=== PATIENT | female | born 1950 | race Caucasian/White ===

== ENCOUNTER 2016-05-18 23:00 | Emergency (ER) | payer MEDICARE ==
[2016-05-18 23:29] VITALS: BP 161/86
--- NOTE | 2016-05-18 23:30 | ER Document Report ---
ED Medical Screen (RME) - General Chief Complaint: Knee Pain Stated Complaint: FALL/KNEE INJURY Time seen by provider: 23:24 Mode of Arrival: Ambulatory Information source: Patient Notes: 65-year-old female presents to ED for bilateral knee pain. She states she fell 3 days ago has scabs to both knees. Patient states she has chronic pain and had been taken Percocet fives for a while and they could work and said now she is on Percocet tens. TRAVEL OUTSIDE OF THE [place] IN LAST 30 DAYS: No - HPI Onset: Other - Patient fell 3 days ago has scabs to both knees Onset/Duration: Intermittent Quality of pain: Achy Severity: Moderate Pain Level: 4 - Soreness Associated Symptoms: Other - Pain bilateral knees where she has fallen and got scabs on both knees able to walk Exacerbated by: Movement, Walking Relieved by: Denies Similar symptoms previously: Yes Recently seen / treated by doctor: No - Related Data Smoking: Cigarettes, Greater than 1 pack/day - 1-1-1/2 packs per day Frequency of alcohol use: None Drug Abuse: None Allergies/Adverse Reactions: gabapentin [Gabapentin] Adverse Reaction (Verified 03/15/16 14:04) " took my breath away" Past Medical History - General Information source: Patient - Social History Cigarette use (# per day): Yes Chew tobacco use (# tins/day): No Frequency of alcohol use: None Drug Abuse: None Lives with: Family Family history: Arthritis, CAD, CVA, DM, Hyperlipidemia, Hypertension, Malignancy, Thyroid Disfunction - Past Medical History Cardiac Medical History: Reports: Hx Hypercholesterolemia, Hx Hypertension Pulmonary Medical History: Reports: Hx Bronchitis, Hx Pneumonia EENT Medical History: Reports: None Neurological Medical History: Reports: None Endocrine Medical History: Reports: Hx Diabetes Mellitus Type 2 Renal/ Medical History: Reports: Hx Ovarian Cysts Malignancy Medical History: Reports: Hx Skin Cancer GI Medical History: Reports: Hx Gastritis, Hx Gastroesophageal Reflux Disease Musculoskeltal Medical History: Reports Hx Arthritis - rheumatoid, Reports Hx Musculoskeletal Deformity, Reports Hx Musculoskeletal Trauma Skin Medical History: Reports None Psychiatric Medical History: Reports: Hx Depression Traumatic Medical History: Reports: Hx Fractures - Arm Infectious Medical History: Reports: None Past Surgical History: Reports: Hx Abdominal Surgery, Hx Cholecystectomy - 3 months old, Hx Genitourinary Surgery - Bladder sling, Hx Hysterectomy - partial , Other - Skin cancer removed - Immunizations Hx Diphtheria, Pertussis, Tetanus Vaccination: No Review of Systems - Review of Systems Constitutional: No symptoms reported EENT: No symptoms reported Cardiovascular: No symptoms reported Respiratory: No symptoms reported Gastrointestinal: No symptoms reported Genitourinary: No symptoms reported Female Genitourinary: No symptoms reported Musculoskeletal: No symptoms reported Skin: Other - Scabs to both knees Hematologic/Lymphatic: No symptoms reported Neurological/Psychological: No symptoms reported Physical Exam - Vital signs Vitals: Temp Pulse Resp BP Pulse Ox 97.6 F 89 16 158/80 H 98 05/18/16 23:07 05/18/16 23:07 05/18/16 23:07 05/18/16 23:07 05/18/16 23:07 Interpretation: Normal - General General appearance: Appears well, Alert - HEENT Head: Normocephalic, Atraumatic Eyes: Normal Pupils: PERRL - Respiratory Respiratory status: No respiratory distress Chest status: Nontender Breath sounds: Normal Chest palpation: Normal - Cardiovascular Rhythm: Regular Heart sounds: Normal auscultation Murmur: No - Abdominal Inspection: Normal Distension: No distension Bowel sounds: Normal Tenderness: Nontender Organomegaly: No organomegaly - Back Back: Normal, Nontender - Extremities General upper extremity: Normal inspection, Nontender, Normal color, Normal ROM , Normal temperature General lower extremity: Normal color, Normal ROM, Normal temperature, Normal weight bearing. No: Zuleyma's sign Knee: Tender, Pain with ROM, Patellar tendon intact, Other - Scabs to both knees. No: Deformity, Dislocation, Drawer's test instability, Ecchymosis, Joint effusion, Laceration, Laxity with valgus stress, Laxity with varus stress , Popliteal fossa tender, Tender joint line - Neurological Neuro grossly intact: Yes Cognition: Normal Orientation: AAOx4 [place] Coma Scale Eye Opening: Spontaneous [place] Coma Scale Verbal: Oriented [place] Coma Scale Motor: Obeys Commands [place] Coma Scale Total: 15 Speech: Normal Motor strength normal: LUE, RUE, LLE, RLE Sensory: Normal - Psychological Associated symptoms: Normal affect, Normal mood - Skin Skin Temperature: Warm Skin Moisture: Dry Skin Color: Normal Location of irregularity: Extremities - Abrasions with scabs to both knees bacitracin applied Course - Re-evaluation Re-evalutation: 05/19/16 07:11 Patient walking freely with scabs noted to both knees. Both knees cleaned dried and bacitracin applied with dressing. Patient given enough bacitracin and dressing change dressing again instructed on how to care for these areas. - Vital Signs Vital signs: Temp Pulse Resp BP Pulse Ox 97.6 F 89 16 161/86 H 98 05/18/16 23:07 05/18/16 23:07 05/18/16 23:07 05/18/16 23:27 05/18/16 23:07 Doctor's Discharge - Discharge Clinical Impression: Abrasion of knee, bilateral Fall Qualifiers: Encounter type: initial encounter Qualified Code(s): W19.XXXA - Unspecified fall, initial encounter Knee pain, bilateral Qualifiers: Chronicity: acute Qualified Code(s): M25.561 - Pain in right knee Disposition: HOME, SELF-CARE Additional Instructions: Abrasions An abrasion is a scraping injury of the skin. Some scarring may result. The seriousness of an abrasion is not always obvious at first. Hidden tissue damage may be present and infection may occur despite proper care. Complete healing may take from ten days to as long as a month. The healing time depends on the depth of the abrasion, and on the amount of crushing of underlying tissues from the injury. Keep the wound and dressing clean. Do not shower or bathe the area until okayed by the doctor. If the dressing gets wet, remove it and blot the wound dry, then reapply a clean dressing. Dressings should be changed every day. Sunscreen should be used for six months after the skin is healed. If any signs of infection occur (swelling, redness, increasing tenderness, red streaks, profuse purulent drainage from the abrasion, tender lumps in the armpit or groin above the abrasion, or fever), see the doctor immediately. SOAP CLEANSING: Gently wash the wound daily using a mild soap (like Ivory, Phisoderm, Neutrogena). Use warm water, rubbing gently until all debris, ooze, and crusting have been washed from the wound. Allow to dry briefly (about 10 minutes) after cleaning. Repeat this cleansing at least three times a day for the first two days and then once or twice a day. ANTIBIOTIC OINTMENT PROTECTION: Your wounds are such that dressing them is not practical or optional. After cleansing, you should apply a thin coating of antibiotic ointment ( Bacitracin, not Neosporin) to the wounds at least three times daily. This lessens infection risk, and may decrease the amount of scarring. Use a q-tip or dull butter knife, not your finger, to apply this ointment. Any debris or ooze which builds up in the ointment should be gently rubbed off with a sterile gauze pad. Harder crusting may need to be gently scrubbed off with a clean wash cloth with soap and warm water, perhaps applying a warm, wet wash cloth to the wound for ten minutes first. Development of redness, severe itching, or blistering may mean allergy to the ointment. See the doctor. FOLLOW-UP CARE: If you have been referred to a physician for follow-up care, call the physician s office for an appointment as you were instructed or within the next two days. If you experience worsening or a significant change in your symptoms, notify the physician immediately or return to the Emergency Department at any time for re-evaluation. Prescriptions: Ibuprofen 600 mg PO Q8HP PRN #20 tablet PRN Reason: Forms: Elevated Blood Pressure, Smoking Cessation Education
[2016-05-18] MEDS ORDERED: IBUPROFEN 800 MG TABLET ONE (23:31)
[2016-05-18] MEDS ORDERED: IBUPROFEN 800 MG TABLET PO ONE (23:40)
== END 2016-05-18 23:45 | disposition home or self-care (01) ==
LOC: ER 23:00
DX: S80.212A Abrasion, left knee, initial encounter (principal); S80.211A Abrasion, right knee, initial encounter; M25.562 Pain in left knee; M25.561 Pain in right knee; Z79.899 Other long term (current) drug therapy; F17.210 Nicotine dependence, cigarettes, uncomplicated; W19.XXXA Unspecified fall, initial encounter
CPT/HCPCS: 99283

== ENCOUNTER 2016-05-26 16:59 | Emergency (ER) | payer MEDICARE ==
--- NOTE | 2016-05-26 17:21 | ER Document Report ---
ED Medical Screen (RME) - General Stated Complaint: SPIDER BITE Time seen by provider: 17:16 Mode of Arrival: Ambulatory Information source: Patient Notes: 65-year-old female woke up with a possible spider bite on her distal right volar ulnar wrist. It was red and swollen and her son drained it. 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 Feels a little better this afternoon. No hx MRSA. TRAVEL OUTSIDE OF THE [place] IN LAST 30 DAYS: No - Related Data Allergies/Adverse Reactions: gabapentin [Gabapentin] Adverse Reaction (Verified 03/15/16 14:04) " took my breath away" Past Medical History - Social History Family history: Arthritis, CAD, CVA, DM, Hyperlipidemia, Hypertension, Malignancy, Thyroid Disfunction - Past Medical History Cardiac Medical History: Reports: Hx Hypercholesterolemia, Hx Hypertension Pulmonary Medical History: Reports: Hx Bronchitis, Hx Pneumonia Endocrine Medical History: Reports: Hx Diabetes Mellitus Type 1, Hx Diabetes Mellitus Type 2 Renal/ Medical History: Reports: Hx Ovarian Cysts. 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, Reports Hx Musculoskeletal Deformity, Reports Hx Musculoskeletal Trauma Psychiatric Medical History: Reports: Hx Depression Traumatic Medical History: Reports: Hx Fractures - Arm Past Surgical History: Reports: Hx Abdominal Surgery, Hx Cholecystectomy - 3 months old, Hx Genitourinary Surgery - Bladder sling, Hx Hysterectomy - partial , Other - Skin cancer removed - Immunizations Hx Diphtheria, Pertussis, Tetanus Vaccination: No
--- NOTE | 2016-05-26 17:54 | ER Document Report ---
ED Skin Rash/Insect Bite/Abscs - General Mode of Arrival: Ambulatory Information source: Patient TRAVEL OUTSIDE OF THE [place] IN LAST 30 DAYS: No - HPI Patient complains to provider of: Tender/swollen area - right wrist, Insect bite - spider <SHIRLEY CALDERON - Last Filed: 05/26/16 18:54> <BRENDA STAHL - Last Filed: 05/26/16 19:17> - General Chief Complaint: Abscess Stated Complaint: SPIDER BITE Notes: 65 year old female presents to the ED complaining of a spider bite and an abscess to the right medial wrist. Patient states that she has used peroxide to wash the wound and has soaked it in warm water for minor relief. Patient's son helped to drain the abscess the best he could by pressing around the bite. Patient's daughter states that she recently fell and suffered a concussion so she is still having some minor difficulties secondary to the fall. (SHIRLEY CALDERON ) - Related Data Allergies/Adverse Reactions: gabapentin [Gabapentin] Adverse Reaction (Verified 05/26/16 18:35) " took my breath away" Past Medical History - General Information source: Patient - Social History Smoking Status: Current Every Day Smoker Family History: Reviewed & Not Pertinent - Past Medical History Cardiac Medical History: Reports: Hx Hypercholesterolemia, Hx Hypertension Pulmonary Medical History: Reports: Hx Bronchitis, Hx Pneumonia Endocrine Medical History: Reports: Hx Diabetes Mellitus Type 1, Hx Diabetes Mellitus Type 2 Renal/ Medical History: Reports: Hx Ovarian Cysts. 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, Reports Hx Musculoskeletal Deformity, Reports Hx Musculoskeletal Trauma Psychiatric Medical History: Reports: Hx Depression Traumatic Medical History: Reports: Hx Fractures - Arm Past Surgical History: Reports: Hx Abdominal Surgery, Hx Cholecystectomy - 3 months old, Hx Genitourinary Surgery - Bladder sling, Hx Hysterectomy - partial , Other - Skin cancer removed - Immunizations Hx Diphtheria, Pertussis, Tetanus Vaccination: No <SHIRLEY CALDERON - Last Filed: 05/26/16 18:54> Review of Systems - Review of Systems Constitutional: No symptoms reported EENT: No symptoms reported Cardiovascular: No symptoms reported Respiratory: No symptoms reported Gastrointestinal: No symptoms reported Genitourinary: No symptoms reported Female Genitourinary: No symptoms reported Musculoskeletal: No symptoms reported Skin: See HPI, Other - abscess to the right medial wrist secondary to a spider bite Hematologic/Lymphatic: No symptoms reported Neurological/Psychological: No symptoms reported -: Yes All other systems reviewed and negative <SHIRLEY CALDERON - Last Filed: 05/26/16 18:54> Physical Exam - General General appearance: Alert In distress: None - HEENT Head: Normocephalic, Atraumatic Eyes: Normal Extraocular movements intact: Yes Pupils: PERRL - Respiratory Respiratory status: No respiratory distress - Cardiovascular Rhythm: Regular Heart sounds: Normal auscultation - Abdominal Inspection: Normal Distension: No distension Bowel sounds: Normal Tenderness: Nontender - Back Back: Normal - Extremities General upper extremity: Normal ROM. No: Normal inspection - see skin exam below General lower extremity: Normal inspection, Normal ROM - Neurological Neuro grossly intact: Yes - Psychological Associated symptoms: Normal affect, Normal mood - Skin Skin Temperature: Warm Skin Moisture: Dry Skin Color: Normal Skin irregularity: Abscess - Right volar ulnar wrist has a 1cm round, erythematous, and raised abscess with a central hole with presence of some drainage. Abscess is firm, but not fluctuant. Location of irregularity: Other - right volar ulnar wrist Character of irregularity: Erythematous <SHIRLEY CALDERON - Last Filed: 05/26/16 18:54> <BRENDA STAHL - Last Filed: 05/26/16 19:17> - Vital signs Vitals: Temp Pulse Resp BP Pulse Ox 97.8 F 97 18 140/66 H 96 05/26/16 17:14 05/26/16 17:14 05/26/16 17:14 05/26/16 17:14 05/26/16 17:14 (SHIRLEY CALDERON) (BRENDA STAHL) Procedures - Incision and Drainage Right Volar Wrist Time completed: 19:10 Type: Simple Anesthetic type: 1% Lidocaine mL's of anesthetic: 2 Blade size: 11 I&D procedure: Chlorprep applied, Iodoform packing placed Incision Method: Incision made by scalpel Amount/type of drainage: SMALL AMOUNT OF PUS <BRENDA STAHL - Last Filed: 05/26/16 19:17> Discharge <SHIRLEY CALDERON - Last Filed: 05/26/16 18:54> <BRENDA STAHL - Last Filed: 05/26/16 19:17> - Discharge Clinical Impression: Abscess Condition: Stable Disposition: HOME, SELF-CARE Additional Instructions: Abscess: You have an abscess (boil). This a pus-forming infection, usually due to staph. Some boils may be left to drain on their own, but most require lancing. From the time the tender lump first appears, it may be three or four days before the abscess is ready to chery. Local heat and rest help at this stage of treatment. An antibiotic may prevent spread of the infection. Once the abscess is opened, packing may be placed into it. This is done so pus is not sealed inside by premature closure of the cavity. The packing will be removed at your follow-up visit or you may be advised to remove it yourself at home. Sometimes this packing must be replaced a few times during healing. The wound will heal with surprisingly little scar. Depending on the size and location of an abscess, healing can take one to four weeks. You may shower and wash the area around the incision site two or three times a day. Antibiotics may be prescribed, but are usually not necessary after an abscess has been drained. If you develop fever, chilling, worsening pain, or increasing swelling in the area, call the doctor or return immediately. ELEVATE THE HAND. KEEP THE DRESSING CLEAN AND DRY. REMOVE THE GAUZE PACKING SATURDAY. TAKER THE MEDICATIONS PRESCRIBED. TAKE TYLENOL AND MOTRIN FOR PAIN IF NEEDED. RETURN TO THE EMERGENCY ROOM IF ANY NEW OR WORSENING SYMPTOMS. Prescriptions: Cephalexin Monohydrate [Keflex 500 mg Capsule] 500 mg PO QID #20 capsule Sulfamethoxazole/Trimethoprim [Bactrim Ds Tablet] 2 tab PO BID #20 tablet Scribe Attestation: 05/26/16 19:14 I personally performed the services described in the documentation, reviewed and edited the documentation which was dictated to the scribe in my presence, and it accurately records my words and actions. (BRENDA STAHL) Scribe Documentation - Scribe Written by Octavio:: Octavio Chan, 05/26/2016 [id number] acting as scribe for :: Favio <SHIRLEY CALDERON - Last Filed: 05/26/16 18:54>
[2016-05-26] MEDS ORDERED: LIDOCAINE 1% INJ-PF (10 MG/ML) 30 ML SDV INJ ONE (18:00)
[2016-05-26] MEDS ORDERED: CEPHALEXIN 500 MG CAPSULE PO ONE (19:10)
[2016-05-26] MEDS ORDERED: SULFAMETHOXAZOLE/TRIMETHOPRIM 800-160 MG TABLET PO ONE (19:10)
[2016-05-26 19:54] VITALS: BP 136/82
== END 2016-05-26 19:53 | disposition home or self-care (01) ==
LOC: ER 16:59
PROC: 0H9DXZZ Drainage of Right Lower Arm Skin, External Approach (ICD-10-PCS; principal; 2016-05-26)
DX: L02.413 Cutaneous abscess of right upper limb (principal); F17.200 Nicotine dependence, unspecified, uncomplicated; E78.00 Pure hypercholesterolemia, unspecified; I10 Essential (primary) hypertension; E11.9 Type 2 diabetes mellitus without complications; Z85.828 Personal history of other malignant neoplasm of skin; Z90.49 Acquired absence of other specified parts of digestive tract; Z90.710 Acquired absence of both cervix and uterus
CPT/HCPCS: 99283; 10060; A9270 ×2

== ENCOUNTER → 2016-09-13 | Outpatient (CLI) | payer MEDICARE ==
--- NOTE | 2016-09-13 14:42 | WOMENS IMAGING REPORT ---
EXAM DESCRIPTION: U/S PELVIS NON-OB COMPLETED DATE/TIME: 09/13/2016 1:22 pm REASON FOR STUDY: D27.9, U/S PELVIS D27.9 BENIGN NEOPLASM OF UNSPECIFIED OVARY COMPARISON: CT abdomen pelvis 02/05/2014 Pelvic ultrasound 02/05/2014 TECHNIQUE: Dynamic and static grayscale images acquired of the pelvis via transabdominal approach an d recorded on PACS. Additional selected color Doppler and spectral images recorded. LIMITATIONS: Large body habitus. Empty bladder. FINDINGS: UTERUS: Contour normal. No mass. Uterus is 7.6 x 4.1 x 3.4 cm in size ENDOMETRIAL STRIPE: No focal or generalized thickening. No masses. Endometrial stripe 3 to 4 mm in t hickness CERVIX: Not well seen RIGHT OVARY: Not visualized RIGHT OVARY DOPPLER: Not performed LEFT OVARY: Not visualized LEFT OVARY DOPPLER: Not performed FREE FLUID: None noted. OTHER: No other significant finding. IMPRESSION: Limited study. Ovaries not visualized. TECHNICAL DOCUMENTATION: JOB ID: [id number] [employer]- All Rights Reserved
== END ==
LOC: WI 10:35
PROVIDERS: ATTEND Internal Medicine
DX: D27.9 Benign neoplasm of unspecified ovary (principal)
CPT/HCPCS: 76856

== ENCOUNTER 2016-09-15 03:39 | Emergency (ER) | payer MEDICARE ==
[2016-09-15] MEDS ORDERED: OXYCODONE-ACETAMINOPHEN 5-325 MG TABLET PO ONE (05:48)
--- NOTE | 2016-09-15 06:27 | RADIOLOGY REPORT (SQ) ---
EXAM DESCRIPTION: CT HEAD WITHOUT COMPLETED DATE/TIME: 09/15/2016 6:10 am REASON FOR STUDY: fall COMPARISON: CT head 03/15/2016 TECHNIQUE: Axial images acquired through the brain without intravenous contrast. Images reviewed wi th bone, brain and subdural windows. Images stored on PACS. All CT scanners at this facility use dose modulation, iterative reconstruction, and/or weight based d osing when appropriate to reduce radiation dose to as low as reasonably achievable (ALARA). [facility]: Dose Right [facility]: CareDose [facility]: Dose Right [facility]: Teradose 4D [facility]: Loccie RADIATION DOSE: 64.61 mGy. LIMITATIONS: There is motion artifact. There is streak artifact from the patient's dental amalgam. FINDINGS: VENTRICLES: Mildly prominent. CEREBRUM: No mass effect. No hemorrhage. No midline shift. Areas of low density in the white matte r most likely due to chronic micro-vascular ischemic change. No evidence for acute territorial infar ction. CEREBELLUM: No hemorrhage. No alteration of density. No evidence for acute infarction. EXTRAAXIAL SPACES: Mild age-related involutional change. No fluid collections. ORBITS AND GLOBE: Symmetrical contour of the globes. CALVARIUM: No depressed fracture. PARANASAL SINUSES: No air-fluid level. SOFT TISSUES: No hematoma. IMPRESSION: No acute intracranial hemorrhage or depressed calvarial fracture. Mild chronic changes of atrophy and microvascular ischemia. TECHNICAL DOCUMENTATION: JOB ID: [id number] [facility] Quality ID # [id number]: Final reports with documentation of one or more dose reduction techniques (e.g., Au tomated exposure control, adjustment of the mA and/or kV according to patient size, use of iterative reconstruction technique) 2010 [employer]- All Rights Reserved
--- NOTE | 2016-09-15 06:42 | RADIOLOGY REPORT (SQ) ---
EXAM DESCRIPTION: CT CERVICAL SPINE WITHOUT COMPLETED DATE/TIME: 09/15/2016 6:11 am REASON FOR STUDY: fall COMPARISON: None. TECHNIQUE: Axial images acquired through the cervical spine without intravenous contrast. Images re viewed with lung, soft tissue and bone windows. Reconstructed coronal and sagittal MPR images review ed. Images stored on PACS. All CT scanners at this facility use dose modulation, iterative reconstruction, and/or weight based d osing when appropriate to reduce radiation dose to as low as reasonably achievable (ALARA). [facility]: Dose Right [facility]: CareDose [facility]: Dose Right [facility]: Teradose 4D [facility]: General Blood RADIATION DOSE: 19.55 mGy. LIMITATIONS: None. FINDINGS: ALIGNMENT: Anatomic. MINERALIZATION: Normal. VERTEBRAL BODIES: No fractures or dislocation. DISCS: No significant disc disease. FACETS, LATERAL MASSES, POSTERIOR ELEMENTS: No fractures. No dislocation. HARDWARE: None in the spine. VISUALIZED RIBS: No fractures. LUNG APICES AND SOFT TISSUES: No acute findings. IMPRESSION: No acute fracture in the cervical spine. TECHNICAL DOCUMENTATION: JOB ID: [id number] [facility] Quality ID # 436: Final reports with documentation of one or more dose reduction techniques (e.g., Au tomated exposure control, adjustment of the mA and/or kV according to patient size, use of iterative reconstruction technique) 2010 [employer]- All Rights Reserved
--- NOTE | 2016-09-15 06:43 | RADIOLOGY REPORT (SQ) ---
EXAM DESCRIPTION: KNEE LEFT 2 VIEWS COMPLETED DATE/TIME: 09/15/2016 6:24 am REASON FOR STUDY: fall COMPARISON: None. NUMBER OF VIEWS: Two views. TECHNIQUE: AP and lateral radiographic images acquired of the left knee. LIMITATIONS: None. FINDINGS: MINERALIZATION: Normal. BONES: No acute fracture or dislocation. JOINT: No effusion. SOFT TISSUES: No soft tissue swelling. No radio-opaque foreign body. IMPRESSION: No radiographic evidence of acute injury. TECHNICAL DOCUMENTATION: JOB ID: [id number] [place]-[id number] 2010 [employer]- All Rights Reserved
--- NOTE | 2016-09-15 06:45 | RADIOLOGY REPORT (SQ) ---
EXAM DESCRIPTION: TIBIA FIBULA LEFT COMPLETED DATE/TIME: 09/15/2016 6:24 am REASON FOR STUDY: fall COMPARISON: None. NUMBER OF VIEWS: Two views. TECHNIQUE: Two radiographic images acquired of the left tibia and fibula to include the knee and ank le in at least one projection. LIMITATIONS: None. FINDINGS: MINERALIZATION: Normal. BONES: No acute fracture or dislocation. SOFT TISSUES: No obvious swelling or radiopaque foreign body. IMPRESSION: No radiographic evidence of acute injury. TECHNICAL DOCUMENTATION: JOB ID: [id number] [place]-[id number] 2010 [employer]- All Rights Reserved
--- NOTE | 2016-09-15 06:56 | ER Document Report ---
HPI - HPI Patient complains to provider of: fall Pain Level: 5 Context: This 66-year-old female since emergency department complaining of fall earlier this evening. 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 Patient denies any LOC but admits to nausea with headache and confusion lasting less than a minute. She does have a gash over the left forehead. Otherwise denies headache currently. She admits to stiffness all of her body but pain over her left knee and her left wasserman. Past medical history significant for high blood pressure and diabetes. Primary care is Dr. Mikhail Stanford - CARDIOVASCULAR Cardiovascular: DENIES: Chest pain - REPRODUCTIVE Reproductive: DENIES: : - DERM Skin Color: Normal - NURSING COMMENTS Comment: pt reports that she tripped and fell while chasing her cat this morning and tripped and fell. pt las abrasions to arms and knees and small cut above her left eye. pt reports neck pain. denies LOC. Past Medical History - Social History Smoking Status: Unknown if Ever Smoked Family History: Reviewed & Not Pertinent Patient has suicidal ideation: No Patient has homicidal ideation: No - Past Medical History Cardiac Medical History: Reports: Hx Hypercholesterolemia, Hx Hypertension Pulmonary Medical History: Reports: Hx Bronchitis, Hx Pneumonia Endocrine Medical History: Reports: Hx Diabetes Mellitus Type 1, Hx Diabetes Mellitus Type 2 Renal/ Medical History: Reports: Hx Ovarian Cysts. 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, Reports Hx Musculoskeletal Deformity, Reports Hx Musculoskeletal Trauma Psychiatric Medical History: Reports: Hx Depression Traumatic Medical History: Reports: Hx Fractures - Arm Past Surgical History: Reports: Hx Abdominal Surgery, Hx Cholecystectomy - 3 months old, Hx Genitourinary Surgery - Bladder sling, Hx Hysterectomy, Other - Skin cancer removed - Immunizations Hx Diphtheria, Pertussis, Tetanus Vaccination: No Vertical Provider Document - CONSTITUTIONAL Agree With Documented VS: Yes Exam Limitations: No Limitations General Appearance: WD/WN, No Apparent Distress - INFECTION CONTROL TRAVEL OUTSIDE OF THE [place] IN LAST 30 DAYS: No - HEENT HEENT: Normocephalic, PERRLA Notes: 1cm superficial laceration above the left eyebrow - NECK Neck: Normal Inspection, Other - Initially in a c-collar. After cleared, full range of motion no spinous process tenderness - RESPIRATORY Respiratory: Breath Sounds Normal, No Respiratory Distress, Chest Non-Tender O2 Sat by Pulse Oximetry: 97 - CARDIOVASCULAR Cardiovascular: Regular Rate, Regular Rhythm, No Murmur Pulses: Normal: Radial, Dorsalis pedis - BACK Back: Normal Inspection Notes: No evidence of spinous process tenderness, deformity, step-off, ecchymosis. No paraspinous muscle tenderness. Patient able to ambulate to the bathroom with normal gait - MUSCULOSKELETAL/EXTREMETIES Musculoskeletal/Extremeties: MAEW, FROM, Tender - distal knee, anterior tib - NEURO Level of Consciousness: Awake, Alert, Appropriate Motor/Sensory: No Motor Deficit, No Sensory Deficit - DERM Integumentary: Laceration - left knee, left tibia superficial not past dermis Course - Re-evaluation Re-evalutation: 09/15/16 07:56 Patient is a 66-year-old female who is hemodynamic stable, no acute distress afebrile. Head CT and C-spine PCR negative for any bleed or fracture. Tib-fib and knee x-rays do not show any evidence of dislocation or fracture. Patient stable for discharge home - Vital Signs Vital signs: Temp Pulse Resp BP Pulse Ox 97.8 F 90 18 150/74 H 97 09/15/16 03:45 09/15/16 03:45 09/15/16 03:45 09/15/16 03:45 09/15/16 03:45 - Diagnostic Test Radiology reviewed: Image reviewed, Reports reviewed Procedures - Laceration/Wound Repair Face Wound length (cm): 1 Wound's Depth, Shape: Superficial Laceration pre-procedure: Betadine prep applied Wound Repaired With: Dermabond Discharge - Discharge Clinical Impression: Fall, Laceration Condition: Good Disposition: HOME, SELF-CARE Additional Instructions: MOTOR VEHICLE ACCIDENT: You may develop some soreness and stiffness over the next two days. Mild neck and back strain is common in auto accidents, and may not be painful until the muscle becomes inflamed. But if nothing is painful now, there is no fracture , and x-rays are not needed. If you develop pain over the next couple of days, treat each tender area. Apply cold packs directly to the painful spot. Rest. Antiinflammatory pain medication, such as ibuprofen, can decrease soreness and inflammation. Most of the time, these late-developing pains go away within a few days. Most patients are back at work or school within a week. The area might be little irritable for two or three weeks. You should call the doctor, or go to the hospital, if you develop severe neck, chest, or abdominal pain, repeated vomiting, severe lightheadedness or weakness, trouble breathing, numbness or weakness in any extremity, problems with your bladder or bowel, or pain radiating down an arm or leg. HEAD INJURY PRECAUTIONS: At this point, there is no evidence that your head injury is serious. Observation is necessary, however. Take only clear liquids for the first few hours, unless told otherwise by the doctor. If no pain medication was prescribed, you may take acetaminophen according to the directions on the bottle. Do not take any medication that may alter your level of alertness (unless you've discussed it with the doctor first) . Limit activity for the first 24 hours. Bed rest is best. During the first 24 hours, check to see approximately every two to three hours that the patient is easily arousable, responds normally, and can perform common tasks such as walking without difficulty. Contact your doctor or go to the hospital if any of the following things occur: Persistent vomiting, difficulty in arousing the patient, worsening or continued headache, or failure to improve as expected. Head injuries can cause symptoms that persist for a few days or even a few weeks. NECK INJURY (CERVICAL STRAIN): You have a neck strain. This is an injury to the muscles and ligaments in the neck. There is no evidence of a fracture of the neck bones. Also, no injury to the spinal cord or nerve roots was detected. Usually, stiffness and pain INCREASE for the first 24-48 hours after the injury. The pain will gradually resolve and the neck will become more mobile. Most patients are back at work or school within a few days. Typically, complete healing takes about two or three weeks. The usual initial treatment is rest and cold packs. A neck collar may be placed to keep the muscles of the neck at rest. Antiinflammatory and muscle relaxing medication are often used to reduce the spasm and irritation. You should call the doctor, or go to the hospital, if you develop numbness or weakness in any extremity, problems with your bladder or bowel, or pain radiating down the arms. MUSCLE STRAIN: You have strained a muscle -- torn the fibers within the muscle. This often occurs with strenuous exertion, or during an injury that suddenly stretches the muscle. The seriousness of a strain varies. Some strains heal within days, others cause problems for months. X-rays cannot show a muscle strain. X-rays are taken only if symptoms suggest that a fracture could be present. The usual treatment of a muscle strain is rest and ice packs. Sometimes, a sling, splint, or crutches may be necessary to rest the muscle. The muscle can be used again once pain subsides. Severe strains require a special exercise and stretching program to prevent permanent stiffness and disability. Your doctor will advise you if this will be necessary. Call the doctor immediately if pain or swelling becomes severe, or if numbness or discoloration develop. CONTUSION: Your injury has resulted in a contusion -- a crushing of the deep tissues. No injury to important structures was detected during the physician's exam. Contusions vary in the amount of pain they cause, and in the length of time required for healing. Typically, the area will become bruised, and will remain painful to touch for two or three weeks. However, most patients are back to working and playing within a few days. After the initial period of rest and cold-packs, your symptoms (together with the doctor's recommendations) will determine how rapidly you can get back to full activity. Usually this means "do what feels okay, but don't do things that hurt." If re-examination was recommended, it's important to follow up as instructed. Call the doctor or return any time if pain increases, if swelling becomes severe, if you develop numbness or weakness in an injured extremity, or if any other alarming symptoms occur. ABRASIONS: An abrasion is a scraping injury of the skin. Some scarring may result. The seriousness of an abrasion is not always obvious at first. Hidden tissue damage may be present and infection may occur despite proper care. Complete healing may take from ten days to as long as a month. The healing time depends on the depth of the abrasion, and on the amount of crushing of underlying tissues from the injury. Keep the wound and dressing clean. Do not shower or bathe the area until okayed by the doctor. If the dressing gets wet, remove it and blot the wound dry, then reapply a clean dressing. Dressings should be changed every day. Sunscreen should be used for six months after the skin is healed. If any signs of infection occur (swelling, redness, increasing tenderness, red streaks, profuse purulent drainage from the abrasion, tender lumps in the armpit or groin above the abrasion, or fever), see the doctor immediately. LOW BACK PAIN: Three out of every four people will have an episode of disabling back pain during their lifetime. Most commonly the pain is due to straining of the muscles and ligaments in the low back. Usual treatment includes: (1) Rest on a firm surface. Avoid lying on your stomach. (2) Ice pack the painful area. After a few days, gentle heat may be used intermittently to relax the area, or ice packs can be continued. (3) Medication may be needed -- muscle relaxers and antiinflammatory medicines are commonly used. (4) As the back improves, exercises are prescribed to strengthen the back and abdominal muscles. Your doctor will advise you on the proper care for your back at each stage in your recovery. You may be better in a few days -- or healing may take several weeks. If new symptoms of a "herniated disc" (radiation of pain, numbness, or tingling down the back of the leg or weakness in the leg) occur, you should be re-examined. Further testing may be necessary. USE OF TYLENOL (ACETAMINOPHEN): Acetaminophen may be taken for pain relief or fever control. It's much safer than aspirin, offering a wider range of "safe" dosages. It is safe during . Some brand names are Tylenol, Panadol, Datril, Anacin 3, Tempra, and Liquiprin. Acetaminophen can be repeated every four hours. The following are maximum recommended dosages: WEIGHT Dose Drops Elixir Chewable( 80mg) (LBS.) drprs=droppers tsp=teaspoon 6 40 mg 0.4 ml (1/2) 6-11 80 mg 0.8 ml (full) tsp 1 tab 12-16 120 mg 1 1/2 drprs 3/4 tsp 1 1/2 tabs 17-23 160 mg 2 drprs 1 tsp 2 tabs 24-30 240 mg 3 drprs 1 1/2 tsp 3 tabs 30-35 320 mg 2 tsp 4 tabs 36-41 360 mg 2 1/4 tsp 4 1/2 tabs 42-47 400 mg 2 1/2 tsp 5 tabs 48-53 480 mg 3 tsp 6 tabs 54-59 520 mg 3 1/4 tsp 6 1/2 tabs 60-64 560 mg 3 1/2 tsp 7 tabs 65-70 600 mg 3 3/4 tsp 7 1/2 tabs 71-76 640 mg 4 tsp 8 tabs 77-82 720 mg 4 1/2 tsp 9 tabs 83-88 800 mg 5 tsp 10 tabs >89 pounds or adults 650 mg to 900 mg Acetaminophen can be repeated every four hours. Maximum dose not to exceed 4000 mg a day. These maximum recommended dosages are slightly higher than the dosages written on the product container, but these dosages are very safe and below the toxic dosage for acetaminophen. NON-SUTURED LACERATION: Your laceration did not require suturing. Some lacerations cannot be sutured because of increased infection risk, while others simply don't need stitches because they are shallow or very short. Your injury should be protected while it heals. Usually complete healing takes 10 to 14 days. Keep the dressing clean and dry, and change it every day. If you notice increasing pain, redness, swelling, drainage, or tender lumps in the armpit or groin above the injury, infection may be present. You should call the doctor at once. ICE PACKS: Apply ice packs frequently against the painful area. Many different schedules are recommended, such as "20 minutes on, 20 minutes off" or "one hour ice, two hours rest." If you need to work, you may need to go longer between ice treatments. You should plan to have the area ice packed AT LEAST one fourth of the time. The ice should be applied over the wrap, tape, or splint, or over a layer of cloth -- not directly against the skin. Some ice bags have a built-in cloth and can be put directly on the skin. WARM PACKS: After approximately two days, apply gentle heat (such as a heating pad or hot water bottle) for about 20 to 30 minutes about every two hours -- at least four times daily. Warmth and elevation will help you make a more rapid recovery , and will ease the pain considerably. Do not use HOT heat, and never apply heat for longer than 30 minutes. The continuous heat can invisibly damage skin and muscles -- even when no burn is seen on the surface. Damaged muscles can make you MORE sore. FOLLOW-UP CARE: If you have been referred to a physician for follow-up care, call the physician s office for an appointment as you were instructed or within the next two days. If you experience worsening or a significant change in your symptoms, notify the physician immediately or return to the Emergency Department at any time for re-evaluation. Referrals: MIKHAIL STANFORD MD [Primary Care Provider] - Follow up as needed
[2016-09-15 07:37] VITALS: BP 128/83
== END 2016-09-15 07:20 | disposition home or self-care (01) ==
LOC: ER 03:39
DX: S81.012A Laceration without foreign body, left knee, initial encounter (principal); S81.812A Laceration without foreign body, left lower leg, initial encounter; S40.812A Abrasion of left upper arm, initial encounter; S40.811A Abrasion of right upper arm, initial encounter; S01.81XA Laceration without foreign body of other part of head, initial encounter; M54.2 Cervicalgia; W01.0XXA Fall on same level from slipping, tripping and stumbling without subsequent striking against object, initial encounter; E11.9 Type 2 diabetes mellitus without complications; Z90.49 Acquired absence of other specified parts of digestive tract; Z90.710 Acquired absence of both cervix and uterus
CPT/HCPCS: 99284; 73560; 73590; 70450; 72125; A9270

== ENCOUNTER 2016-10-28 13:22 | Emergency (ER) | payer MEDICARE ==
--- NOTE | 2016-10-28 13:52 | ER Document Report ---
HPI - HPI Patient complains to provider of: left foot pain Pain Level: 4 Context: 66 yo female c/o pain to left foot after kicking wall with foot several days ago. Associated Symptoms: None Exacerbated by: Walking Relieved by: Denies - REPRODUCTIVE Reproductive: DENIES: : - DERM Skin Color: Normal Past Medical History - General Information source: Patient - Social History Smoking Status: Current Every Day Smoker Frequency of alcohol use: None Drug Abuse: None Lives with: Family Family History: Reviewed & Not Pertinent - Past Medical History Cardiac Medical History: Reports: Hx Hypercholesterolemia, Hx Hypertension Pulmonary Medical History: Reports: Hx Bronchitis, Hx Pneumonia Endocrine Medical History: Reports: Hx Diabetes Mellitus Type 1, Hx Diabetes Mellitus Type 2 Renal/ Medical History: Reports: Hx Ovarian Cysts. 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, Reports Hx Musculoskeletal Deformity, Reports Hx Musculoskeletal Trauma Psychiatric Medical History: Reports: Hx Depression Traumatic Medical History: Reports: Hx Fractures - Arm Past Surgical History: Reports: Hx Abdominal Surgery, Hx Cholecystectomy - 3 months old, Hx Genitourinary Surgery - Bladder sling, Hx Hysterectomy, Other - Skin cancer removed - Immunizations Hx Diphtheria, Pertussis, Tetanus Vaccination: No Vertical Provider Document - CONSTITUTIONAL Agree With Documented VS: Yes Exam Limitations: No Limitations General Appearance: WD/WN, No Apparent Distress - INFECTION CONTROL TRAVEL OUTSIDE OF THE [place] IN LAST 30 DAYS: No - HEENT HEENT: Atraumatic, PERRLA - NECK Neck: Normal Inspection, Supple - RESPIRATORY Respiratory: Breath Sounds Normal, No Respiratory Distress O2 Sat by Pulse Oximetry: 96 - MUSCULOSKELETAL/EXTREMETIES Musculoskeletal/Extremeties: Tender - left distal dorsal foot, 3rd and 4th toes Course - Re-evaluation Re-evalutation: 10/28/16 14:22 xray negative. results reviewed with patient. pt stable for discharge and follow up with primary care if pain persists. pt agreeable with plan - Vital Signs Vital signs: Temp Pulse Resp BP Pulse Ox 98.1 F 89 18 147/76 H 96 10/28/16 13:29 10/28/16 13:29 10/28/16 13:29 10/28/16 13:29 10/28/16 13:29 Discharge - Discharge Clinical Impression: Contusion of left foot Qualifiers: Encounter type: initial encounter Qualified Code(s): S90.32XA - Contusion of left foot, initial encounter Condition: Stable Disposition: HOME, SELF-CARE Instructions: Contusion ([facility]), Sprain ([facility]), Ice & Elevation ([facility]), Ultram ([facility] ) Additional Instructions: ice and elevate foot ultram for pain follow up with primary care if pain persists Prescriptions: Tramadol HCl [Ultram 50 mg Tablet] 50 mg PO ASDIR PRN #20 tablet PRN Reason:
--- NOTE | 2016-10-28 14:08 | RADIOLOGY REPORT (SQ) ---
EXAM DESCRIPTION: FOOT LEFT COMPLETE COMPLETED DATE/TIME: 10/28/2016 2:01 pm REASON FOR STUDY: hit wall with foot COMPARISON: None. NUMBER OF VIEWS: Three views. TECHNIQUE: AP, lateral and oblique radiographic images acquired of the left foot. LIMITATIONS: None. FINDINGS: MINERALIZATION: Normal. BONES: No acute fracture or dislocation. Plantar calcaneal spur. Degenerative changes in the midfoo t with osteophytes at several tarsal metatarsal joints. No worrisome bone lesions. JOINTS: No effusions. SOFT TISSUES: No soft tissue swelling. No foreign body. OTHER: No other significant finding. IMPRESSION: DEGENERATIVE CHANGES. NO RADIOGRAPHIC EVIDENCE OF ACUTE INJURY. TECHNICAL DOCUMENTATION: JOB ID: [id number] [employer]- All Rights Reserved
[2016-10-28 14:47] VITALS: BP 148/74
== END 2016-10-28 14:56 | disposition home or self-care (01) ==
LOC: ER 13:22
DX: S90.32XA Contusion of left foot, initial encounter (principal); M79.672 Pain in left foot; F17.200 Nicotine dependence, unspecified, uncomplicated; W22.01XA Walked into wall, initial encounter
CPT/HCPCS: 99283

== ENCOUNTER → 2016-11-29 | Outpatient (CLI) | payer MEDICARE ==
--- NOTE | 2016-11-30 13:06 | RADIOLOGY REPORT (SQ) ---
EXAM DESCRIPTION: CHEST PA/LATERAL COMPLETED DATE/TIME: 11/29/2016 4:22 pm REASON FOR STUDY: COUGH COMPARISON: Two-view chest 06/25/2011 EXAM PARAMETERS: NUMBER OF VIEWS: two views TECHNIQUE: Digital Frontal and Lateral radiographic views of the chest acquired. RADIATION DOSE: NA LIMITATIONS: none FINDINGS: LUNGS AND PLEURA: No opacities, masses or pneumothorax. No pleural effusion. MEDIASTINUM AND HILAR STRUCTURES: No masses or contour abnormalities. HEART AND VASCULAR STRUCTURES: Heart normal size. No evidence for failure. BONES: No acute findings. Osteoporotic. No fracture. HARDWARE: None in the chest. OTHER: No other significant finding. IMPRESSION: NO SIGNIFICANT RADIOGRAPHIC FINDING IN THE CHEST. TECHNICAL DOCUMENTATION: JOB ID: [id number] [employer]- All Rights Reserved
== END ==
LOC: OD 15:58
PROVIDERS: ATTEND Internal Medicine
DX: R05 Cough (principal)
CPT/HCPCS: 71020

== ENCOUNTER 2018-06-09 17:03 | Emergency (ER) | payer MEDICARE ==
--- NOTE | 2018-06-09 21:01 | ER Document Report ---
ED Medical Screen (RME) - General Chief Complaint: Weakness Stated Complaint: POSSIBLE STROKE Time Seen by Provider: 06/09/18 20:52 Primary Care Provider: RUPALI STANFORD MD [Primary Care Provider] - Follow up as needed Notes: 67-year-old female reports being sent over by her primary care physician. She states that ever since 04/30 she has had gait instability and several falls. She reports intermittent headaches. He reports cough with tightness across her chest and produced sputum. Denies fever. Denies focal numbness or weakness. Denies visual change. Denies history of stroke. Past medical history of to bacco use, diabetes, hypertension. TRAVEL OUTSIDE OF THE [place] IN LAST 30 DAYS: No - Related Data Allergies/Adverse Reactions: gabapentin [Gabapentin] Adverse Reaction (Verified 06/09/18 20:53) " took my breath away" Past Medical History - Social History Family history: Arthritis, CAD, CVA, DM, Hyperlipidemia, Hypertension, Malignancy, Thyroid Disfunction - Past Medical History Cardiac Medical History: Reports: Hx Hypercholesterolemia, Hx Hypertension Pulmonary Medical History: Reports: Hx Bronchitis, Hx Pneumonia Endocrine Medical History: Reports: Hx Diabetes Mellitus Type 1, Hx Diabetes Mellitus Type 2 Renal/ Medical History: Reports: Hx Ovarian Cysts. 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, Reports Hx Musculoskeletal Deformity, Reports Hx Musculoskeletal Trauma Psychiatric Medical History: Reports: Hx Depression Traumatic Medical History: Reports: Hx Fractures - Arm Past Surgical History: Reports: Hx Abdominal Surgery, Hx Cholecystectomy - 3 months old, Hx Genitourinary Surgery - Bladder sling, Hx Hysterectomy, Other - Skin cancer removed - Immunizations Hx Diphtheria, Pertussis, Tetanus Vaccination: No Physical Exam - Vital signs Vitals: Temp Pulse Resp BP Pulse Ox 98.2 F 82 18 173/81 H 96 06/09/18 17:44 06/09/18 17:44 06/09/18 17:44 06/09/18 17:44 06/09/18 17:44 - General General appearance: Appears well In distress: None - Neurological Orientation: AAOx4 [place] Coma Scale Eye Opening: Spontaneous [place] Coma Scale Verbal: Oriented [place] Coma Scale Motor: Obeys Commands [place] Coma Scale Total: 15 Speech: Normal Cranial nerves: Normal Cerebellar coordination: Normal Motor strength normal: LUE, RUE, LLE, RLE 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
--- NOTE | 2018-06-09 21:55 | RADIOLOGY REPORT (SQ) ---
XR CHEST 1 VIEW HISTORY: Cough, weakness. COMPARISON: 11/29/2016 FINDINGS: The heart size is normal. The lungs are clear. No pleural effusions or pneumothorax is seen. No acute bony findings. IMPRESSION: No evidence of acute cardiopulmonary disease.
--- NOTE | 2018-06-09 22:07 | RADIOLOGY REPORT (SQ) ---
CT HEAD WITHOUT IV CONTRAST HISTORY: Headache. COMPARISON: 03/15/2016 TECHNIQUE: CT scan of the brain without IV contrast. This exam was performed according to our departmental dose-optimization program, which includes automated exposure control, adjustment of the mA and/or kV according to patient size and/or use of iterative reconstruction technique. FINDINGS: Diffuse involutional changes are present. There are scattered areas of hypoattenuation within the periventricular white matter, which likely represent chronic microvascular ischemia. Senescent basal calcifications are present. No evidence of acute infarction, intracranial hemorrhage, extra-axial fluid collection, or midline shift. No air-fluid levels are seen in the paranasal sinuses to suggest acute sinusitis. No depressed skull fracture. IMPRESSION: 1. No acute intracranial findings. 2. Chronic microvascular ischemic disease.
[2018-06-09 22:21] LABS: ABSOLUTE BASOPHILS # (AUTO) 0.1 10^3/uL (0.0-0.2); ABSOLUTE EOSINOPHILS # (AUTO) 0.2 10^3/uL (0.0-0.6); ABSOLUTE LYMPHOCYTES (AUTO) 3.1 10^3/uL (0.5-4.7); ABSOLUTE MONOCYTES (AUTO) 0.8 10^3/uL (0.1-1.4); BASOPHILS % (AUTO) 0.9 % (0-2); EOSINOPHILS % (AUTO) 1.9 % (0-6); HEMATOCRIT 43.4 % (36.0-47.0); HEMOGLOBIN 15.2 g/dL (12.0-15.5); LYMPHOCYTES % (AUTO) 30.2 % (13-45); MEAN CORPUSCULAR HGB CONC 35.1 g/dL (32.0-36.0); MEAN CORPUSCULAR VOLUME 89 fl (80-97); MONOCYTES % (AUTO) 8.3 % (3-13); PLATELET COUNT 264 10^3/uL (150-450); RED BLOOD COUNT 4.91 10^6/uL (3.72-5.28); RED CELL DISTRIBUTION WIDTH 13.2 % (11.5-14.0); SEGMENTED NEUTROPHILS % (AUTO) 58.7 % (42-78); TOTAL CELLS COUNTED % (AUTO) 100 %; WHITE BLOOD COUNT 10.2 10^3/uL (4.0-10.5)
[2018-06-09 22:40] LABS: ALANINE AMINOTRANSFERASE 33 U/L (9-52); ALBUMIN 4.1 g/dL (3.5-5.0); ALKALINE PHOSPHATASE 95 U/L (38-126); ANION GAP 10 (5-19); ASPARTATE AMINO TRANSFERASE 18 U/L (14-36); BILIRUBIN,DIRECT 0.2 mg/dL (0.0-0.4); BILIRUBIN,TOTAL 0.3 mg/dL (0.2-1.3); BLOOD UREA NITROGEN 19 mg/dL (7-20); CALCIUM 9.8 mg/dL (8.4-10.2); CARBON DIOXIDE 27 mmol/L (22-30); CHLORIDE 102 mmol/L (98-107); GLUCOSE 216 mg/dL (75-110); POTASSIUM 4.8 mmol/L (3.6-5.0); SODIUM 139.3 mmol/L (137-145); TOTAL PROTEIN 6.9 g/dL (6.3-8.2)
--- NOTE | 2018-06-09 23:00 | ER Document Report ---
ED General - General Chief Complaint: Weakness Stated Complaint: POSSIBLE STROKE Time Seen by Provider: 06/09/18 22:57 Primary Care Provider: RUPALI STANFORD MD [ACTIVE STAFF] - Follow up as needed Mode of Arrival: Ambulatory Information source: Patient, Relative Notes: HISTORY OF PRESENT ILLNESS: Patient is a 67-year-old female with a past medical history of multiple chronic health conditions including hypertension, diabetes, and chronic depression who presents with generalized weakness with episodes of "I cannot feel my feet and so fall to the ground." The patient reports her physician wanted her to come "get my head scan to make sure I have had a stroke." Location: Global Onset: Gradual Provocation: Unknown Quality: "Sometimes I cannot feel my feet" Radiation: None Severity: Currently no symptoms, mild to moderate at worst Timing: Intermittent Associated symptoms: No fever or chills, no vision changes, no confusion or disorientation, no chest pain or shortness of breath, no weakness of the extremities other than "neuropathy of my feet" REVIEW OF SYSTEMS: CONSTITUTIONAL : Denies fever or chills, no sweats. Denies recent illness. EENT: Denies eye, ear, throat, or mouth pain or symptoms. Denies nasal or sinus congestion. CARDIOVASCULAR: Denies chest pain. RESPIRATORY: Denies cough, cold, or chest congestion. Denies shortness of breath, difficulty breathing, or wheezing. GASTROINTESTINAL: Denies abdominal pain. Denies nausea, vomiting, or diarrhea. Denies constipation. GENITOURINARY: Denies difficulty urinating, painful urination, burning, frequency, or blood in urine. Denies vaginal bleeding, abnormal or irregular periods. MUSCULOSKELETAL: Denies neck or back pain or joint pain or swelling. SKIN: Denies rash or skin lesions. HEMATOLOGIC : Denies easy bruising or bleeding. LYMPHATIC: Denies swollen, enlarged glands. NEUROLOGICAL: Denies altered mental status or loss of consciousness. Denies headache. Denies weakness or paralysis or loss of use of either side. Denies problems with gait or speech. Denies sensory or motor loss. PSYCHIATRIC: Denies anxiety or stress or depression. All other systems reviewed and negative. PHYSICAL EXAMINATION: GENERAL: Well-appearing, well-nourished and in no acute distress. HEAD: Atraumatic, normocephalic. No scalp deformity, depression, or crepitance. EYES: Pupils are 3 mm and equal/round/reactive to light, extraocular movements intact, sclera anicteric, conjunctiva are normal. ENT: Nares patent bilaterally, oropharynx clear without exudates or palatal petechia. Moist mucous membranes. No tonsil hypertrophy. NECK: Normal range of motion, supple without lymphadenopathy. LUNGS: Breath sounds present, equal, and clear to auscultation bilaterally. No wheezes, rales, or rhonchi. HEART: Regular rate and rhythm without murmurs, rubs, or gallops. 2+ peripheral pulses. Normal capillary refill. ABDOMEN: Soft, nontender, nondistended. Normoactive bowel sounds. No guarding, no rebound. No masses appreciated. BACK: Normal contour, no midline tenderness. Rectal exam deferred. PELVC: Deferred. EXTREMITIES: Normal range of motion, no pitting or edema. No cyanosis. NEUROLOGICAL: No focal neurological deficits. Moves all extremities spontaneously and on command. PSYCH: Normal mood, normal affect. No suicidal thoughts/ideations. No homocidal thoughts/ideations. No hallucinations. SKIN: Warm, dry, normal turgor, no rashes or lesions noted. ASSESSMENT AND PLAN: This patient is a 67-year-old female who presents with episodes of falling to the ground likely secondary to the peripheral neuropathy from diabetes. Unlikely to represent acute stroke given quick resolution and a complete normal neurological physical exam. 1. Labs, urine, and head CT are all normal. 2. We will discharge the patient home with return precautions and follow-up with her primary physician to discuss having an outpatient MRI. 3. Patient voices both understanding and agreeing with the plan. TRAVEL OUTSIDE OF THE [place] IN LAST 30 DAYS: No - Related Data Allergies/Adverse Reactions: gabapentin [Gabapentin] Adverse Reaction (Verified 06/09/18 20:53) " took my breath away" Past Medical History - General Information source: Patient, Relative - Social History Smoking Status: Current Every Day Smoker Chew tobacco use (# tins/day): No Frequency of alcohol use: None Drug Abuse: None Lives with: Family Family History: Reviewed & Not Pertinent Patient has suicidal ideation: No Patient has homicidal ideation: No - Past Medical History Cardiac Medical History: Reports: Hx Hypercholesterolemia, Hx Hypertension Pulmonary Medical History: Reports: Hx Bronchitis, Hx Pneumonia EENT Medical History: Reports: None Neurological Medical History: Reports: None Endocrine Medical History: Reports: Hx Diabetes Mellitus Type 1, Hx Diabetes Mellitus Type 2 Renal/ Medical History: Reports: Hx Ovarian Cysts. Denies: Hx Peritoneal Dialysis Malignancy Medical History: Reports: None, Hx Skin Cancer GI Medical History: Reports: Hx Gastritis, Hx Gastroesophageal Reflux Disease Musculoskeletal Medical History: Reports Hx Arthritis - rheumatoid, Reports Hx Musculoskeletal Deformity, Reports Hx Musculoskeletal Trauma Skin Medical History: Reports None Psychiatric Medical History: Reports: Hx Depression Traumatic Medical History: Reports: Hx Fractures - Arm Infectious Medical History: Reports: None Past Surgical History: Reports: Hx Abdominal Surgery, Hx Cholecystectomy - 3 months old, Hx Genitourinary Surgery - Bladder sling, Hx Hysterectomy, Other - Skin cancer removed - Immunizations Immunizations up to date: Yes Hx Diphtheria, Pertussis, Tetanus Vaccination: No History of Influenza Vaccine for 01/2017 - 06/2017 Season: Unknown Physical Exam - Vital signs Vitals: Temp Pulse Resp BP Pulse Ox 98.2 F 82 18 173/81 H 96 06/09/18 17:44 06/09/18 17:44 06/09/18 17:44 06/09/18 17:44 06/09/18 17:44 Course - Vital Signs Vital signs: Temp Pulse Resp BP Pulse Ox 98.8 F 84 18 151/86 H 95 06/10/18 00:25 06/10/18 00:25 06/10/18 00:25 06/10/18 00:25 06/10/18 00:25 - Laboratory Result Diagrams: 06/09/18 22:08 06/09/18 22:08 Laboratory results interpreted by me: 06/09/18 06/09/18 22:08 23:18 Glucose 216 H Urine Protein 100 H Urine Glucose (UA) 50 H - Diagnostic Test Radiology reviewed: Image reviewed, Reports reviewed - EKG Interpretation by Ri EKG shows normal: Sinus rhythm Rate: Normal Rhythm: NSR [place]/QRS: No: Right axis deviation, Left axis deviation, RBBB, LBBB, IVCD, LAHB/LAFB, LPHB/LPFB, Bifasicular block Voltage: No: Increased voltage, Consistant with LVH, Decreased voltage, Throughout, Limb leads P Waves: No: ELIZABET, LAE, Absent, AV Dissociation, Other When compared to previous EKG there are: No significant change Discharge - Discharge Clinical Impression: Weakness Condition: Good Disposition: HOME, SELF-CARE Instructions: Weakness ([facility]) Additional Instructions: You have been evaluated in the Emergency Department for weakness and episodes of almost passing out. While here, you had blood work and a CAT scan of your head that were all normal and it is now safe to be discharged home. Please follow-up with your primary physician as instructed in 1 week to discuss having an outpatient MRI if these episodes keep happening. Please check your blood sugars daily as instructed, especially if you continue having these episodes. Return to the Emergency Department if you experience chest pain, shortness of breath, vision changes, difficulty walking, or any other concerning symptoms. Referrals: RUPALI STANFORD MD [ACTIVE STAFF] - Follow up as needed Print Language: Haitian
[2018-06-10 00:01] LABS: APPEARANCE,URINE CLEAR; BILIRUBIN,URINE NEGATIVE (NEGATIVE); COLOR,URINE YELLOW; GLUCOSE, URINE 50 mg/dL (NEGATIVE); KETONES,URINE NEGATIVE (NEGATIVE); LEUKOCYTE ESTERASE,URINE NEGATIVE (NEGATIVE); NITRITE,URINE NEGATIVE (NEGATIVE); PROTEIN,URINE 100 mg/dL (NEGATIVE); URINE SPECIFIC GRAVITY 1.018; UROBILINOGEN,URINE NEGATIVE mg/dL (<2.0)
[2018-06-10 00:29] VITALS: BP 151/86
--- NOTE | 2018-06-11 10:09 | EKG REPORT ---
SEVERITY:- ABNORMAL ECG - SINUS RHYTHM LEFT VENTRICULAR HYPERTROPHY : Confirmed by: Chuck Galeano 11-Jun-2018 10:08:34
== END 2018-06-10 00:25 | disposition home or self-care (01) ==
LOC: ER 17:03
DX: R53.1 Weakness (principal); F17.200 Nicotine dependence, unspecified, uncomplicated; E78.00 Pure hypercholesterolemia, unspecified; I10 Essential (primary) hypertension; E11.9 Type 2 diabetes mellitus without complications; Z90.710 Acquired absence of both cervix and uterus; Z90.49 Acquired absence of other specified parts of digestive tract
CPT/HCPCS: 36415; 70450; 71045; 80053; 81001; 84484; 85025; 93005; 93010; 99285

== ENCOUNTER 2019-11-07 01:31 | Emergency (ER) | payer MEDICARE ==
[2019-11-07] MEDS ORDERED: ONDANSETRON HCL INJ/PF 4 MG/2 ML SDV IV ONE (04:21)
[2019-11-07] MEDS ORDERED: MORPHINE SULFATE 10 MG/ML INJ IV ONE (04:21)
--- NOTE | 2019-11-07 04:22 | ER Document Report ---
ED Fall - General Chief Complaint: Fall Stated Complaint: FALL Time Seen by Provider: 11/07/19 03:51 Primary Care Provider: RUPALI STANFORD MD [Primary Care Provider] - Follow up as needed VLADIMIR LEVY JR, DO [ACTIVE PROVISIONAL STAFF] - Follow up in 1 week Notes: Patient is a 69-year-old female that comes the emergency department for chief complaint of a mechanical fall. She states that she was headed to the fridge when she "tripped over my own toes". She states that she landed on her floor in the kitchen on her right side/hip. She denies arm injury, back pain, shoulder injury, head pain, head injury. She denies passing out. She denies vomiting. She states that she tried to get up but was unable to bear weight on her right leg. She is not on a blood thinner. Past medical history of type 2 diabetes, hypertension, and chronic back pain on pain management with oxycodone 10 mg 3 times daily. TRAVEL OUTSIDE OF THE [place] IN LAST 30 DAYS: No - Related data Allergies/Adverse Reactions: codeine Adverse Reaction (Verified 11/07/19 04:13) gabapentin [Gabapentin] Adverse Reaction (Verified 06/09/18 20:53) " took my breath away" Home Medications: metformin, losartan-HCTZ, glipizide, januvia, elavil, atorvastatin, oxycodone 10 mg, ocybutin, levofloxacin, albuterol neb Past Medical History - General Information source: Patient - Social History Smoking Status: Current Every Day Smoker Frequency of alcohol use: None Drug Abuse: None Lives with: Family Family History: Reviewed & Not Pertinent Patient has homicidal ideation: No - Past Medical History Cardiac Medical History: Reports: Hx Hypercholesterolemia, Hx Hypertension Pulmonary Medical History: Reports: Hx Bronchitis, Hx Pneumonia Endocrine Medical History: Reports: Hx Diabetes Mellitus Type 1, Hx Diabetes Mellitus Type 2 Renal/ Medical History: Reports: Hx Ovarian Cysts. Denies: Hx Peritoneal Dialysis Malignancy Medical History: Reports: Hx Skin Cancer GI Medical History: Reports: Hx Gastritis, Hx Gastroesophageal Reflux Disease Musculoskeletal Medical History: Reports Hx Arthritis - rheumatoid, Reports Hx Musculoskeletal Deformity, Reports Hx Musculoskeletal Trauma Psychiatric Medical History: Reports: Hx Depression Traumatic Medical History: Reports: Hx Fractures - Arm Past Surgical History: Reports: Hx Abdominal Surgery, Hx Cholecystectomy - 3 months old, Hx Genitourinary Surgery - Bladder sling, Hx Hysterectomy, Other - Skin cancer removed - Immunizations Immunizations up to date: Yes Hx Diphtheria, Pertussis, Tetanus Vaccination: No Review of Systems - Review of Systems Constitutional: No symptoms reported EENT: No symptoms reported Cardiovascular: No symptoms reported Respiratory: No symptoms reported Gastrointestinal: No symptoms reported Genitourinary: No symptoms reported Female Genitourinary: No symptoms reported Musculoskeletal: See HPI Skin: No symptoms reported Hematologic/Lymphatic: No symptoms reported Neurological/Psychological: No symptoms reported Physical Exam - Vital signs Vitals: Temp Pulse Resp BP Pulse Ox 98.1 F 85 15 176/70 H 99 11/07/19 02:23 11/07/19 02:23 11/07/19 02:23 11/07/19 02:11/07/19 02:23 - Notes Notes: GENERAL: Alert, interacts well. No acute distress. HEAD: Normocephalic, atraumatic. EYES: Pupils equal, round, and reactive to light. Extraocular movements intact. ENT: Oral mucosa moist, tongue midline. Oropharynx unremarkable. Airway patent. LUNGS: Clear to auscultation bilaterally, no wheezes, rales, or rhonchi. No respiratory distress. Non-tender chest wall. No signs of trauma. HEART: Regular rate and rhythm. No murmur ABDOMEN: Soft, non-tender. Non-distended. No signs of trauma. EXTREMITIES: Tenderness over the hip joint, proximal thigh anteriorly and laterally, pain and difficulty standing on the leg but patient is still able to do so. Normal knee, ankle, distal neurovascular exam, no ecchymosis or swelling noted. No deformity. BACK: No signs of trauma. No cervical, thoracic, lumbar midline tenderness. No saddle anesthesia, normal distal neurovascular exam. Moves all extremities in full range of motion. NEUROLOGICAL: Alert and oriented x3. Normal speech. Cranial nerves II through XII grossly intact. Strength 5/5 in all extremities. PSYCH: Normal affect, normal mood. SKIN: Warm, dry, normal turgor. No rashes or lesions noted. Course - Re-evaluation Re-evalutation: I did review x-rays from triage, these are unremarkable. However patient does have focal tenderness at the right hip where she fell, she is able to stand but does so with difficulty and ambulates with noted pain. Patient has no signs of trauma on exam, she has no other area of tenderness. She denies head injury, she has no neurological deficits, she is alert and well-appearing. I did discuss with patient, because of her continued pain in her fall CAT scan was performed of the hip but this resulted negative. Patient provided with Lidoderm patches, walker, and discussed orthopedic follow-up. Patient is able to ambulate and was able to be assisted into her vehicle. Patient was stable and well-appearing at time of discharge. Patient did voice understanding and agreement with plan. - Vital Signs Vital signs: Temp Pulse Resp BP Pulse Ox 98.0 F 74 14 133/61 H 94 11/07/19 06:48 11/07/19 06:48 11/07/19 06:48 11/07/19 06:48 11/07/19 06:48 Discharge - Discharge Clinical Impression: Right hip pain Fall Qualifiers: Encounter type: initial encounter Qualified Code(s): W19.XXXA - Unspecified fall, initial encounter Condition: Stable Disposition: HOME, SELF-CARE Additional Instructions: The x-rays and CAT scan do not show fractures or concerning findings. Your evaluation is consistent with soft tissue injury only. You will probably be progressively sore for the next 48 hours and then symptoms should gradually resolve. You can use the walker if needed, I recommend icing the area 3-4 times a day for 10 to 15 minutes, you can apply the patches to the area, continue to your pain medication. If symptoms continue follow-up with orthopedics. Return for any concerning symptoms including developing numbness, severe worsening pain, passing out, or any other concerning or worsening symptoms. Prescriptions: Lidocaine [Lidoderm 5% (700 mg) Transdermal Patch] 1 patch TP DAILY #30 adh..patch Walker [Ultra-Light Rollator] 1 each MC ONCE PRN #1 each PRN Reason: Referrals: RUPALI STANFORD MD [Primary Care Provider] - Follow up as needed VLADIMIR LEVY JR, DO [ACTIVE PROVISIONAL STAFF] - Follow up in 1 week
--- NOTE | 2019-11-07 04:54 | RADIOLOGY REPORT (SQ) ---
EXAM DESCRIPTION: XR SACRUM COCCYX 2 OR MORE VIEWS COMPLETED DATE/TME: 11/07/2019 00:00 CLINICAL HISTORY: 69 years, Female, fall/pain COMPARISON: None. NUMBER OF VIEWS: 3 TECHNIQUE: 3 views of the sacrum/coccyx LIMITATIONS: None. FINDINGS: Osteopenia. Slight anterior tilting of the coccyx, likely developmental. No radiographic evidence for acute fracture or subluxation IMPRESSION: No radiographic evidence for acute osseous abnormality copyright 2010 [employer]- All Rights Reserved
--- NOTE | 2019-11-07 04:55 | RADIOLOGY REPORT (SQ) ---
EXAM DESCRIPTION: XR HIP 2 OR MORE VIEWS COMPLETED DATE/TME: 11/07/2019 00:00 CLINICAL HISTORY: 69 years, Female, fall/pain COMPARISON: None. NUMBER OF VIEWS: 2 TECHNIQUE: AP pelvis single view right hip LIMITATIONS: None. FINDINGS: Osteopenia. Vascular calcifications. Negative for acute fracture or dislocation. Mild degenerative change of the hips bilaterally IMPRESSION: No acute osseous abnormality copyright 2010 [employer]- All Rights Reserved
--- NOTE | 2019-11-07 04:58 | RADIOLOGY REPORT (SQ) ---
EXAM DESCRIPTION: [employer]: XR LUMBAR SPINE ANTEROPOSTERIOR, LATERAL, AND OBLIQUES Views: 5 CLINICAL HISTORY: 69 years Female; fall/pain; COMPARISON: None. FINDINGS: Alignment is anatomic. There is mild multilevel facet arthropathy. Vertebral heights are preserved. No acute fracture or subluxation. No suspicious lytic or blastic lesions. Diffuse aortic calcification is noted. IMPRESSION: 1. No acute fracture or subluxation 2. Mild facet arthropathy
--- NOTE | 2019-11-07 06:42 | RADIOLOGY REPORT (SQ) ---
CT pelvis: 11/07/2019 5:08 AM CDT TECHNIQUE: Multiple axial contiguous images were obtained through the pelvis without intravenous contrast administered. Coronal and sagittal reconstructed images were also obtained and examined. This exam was performed according to our departmental dose-optimization program, which includes automated exposure control, adjustment of the mA and/or KV according to the patient's size and/or use of iterative reconstruction technique. HISTORY: 69-year-old patient with fall, right hip pain, inability to ambulate. COMPARISON: None available FINDINGS: No free intraperitoneal fluid is seen. The visualized intrapelvic organs appear unremarkable. There are no findings to suggest an acute fracture or subluxation. The uterus is present. There are degenerative changes seen at the lower lumbar spine. IMPRESSION: There are no findings to suggest an acute fracture-dislocation.
[2019-11-07 06:50] VITALS: BP 133/61
== END 2019-11-07 07:27 | disposition home or self-care (01) ==
LOC: ER 01:31
DX: M25.551 Pain in right hip (principal); W01.0XXA Fall on same level from slipping, tripping and stumbling without subsequent striking against object, initial encounter; Y92.009 Unspecified place in unspecified non-institutional (private) residence as the place of occurrence of the external cause; F17.200 Nicotine dependence, unspecified, uncomplicated; E78.00 Pure hypercholesterolemia, unspecified; I10 Essential (primary) hypertension; E11.9 Type 2 diabetes mellitus without complications
CPT/HCPCS: 99284; 96374; 96375; 72220; 73502; 72110; 72192; J2270; J2405